=== PATIENT | male | born 1950 | race Caucasian/White ===

== ENCOUNTER → 2023-11-05 10:06 | Outpatient (REF) | payer BC, SELFPAY | LOC: DHCBC MAIN 10:06 | PROVIDERS: ATTENDING PHYSICIAN Internal Medicine Cardiovascular Disease; FAMILY PHYSICIAN Family Medicine | DX: I36.1 Nonrheumatic tricuspid (valve) insufficiency (principal); I34.0 Nonrheumatic mitral (valve) insufficiency; I35.1 Nonrheumatic aortic (valve) insufficiency; E78.00 Pure hypercholesterolemia, unspecified | CPT/HCPCS: 93306 ==

== ENCOUNTER → 2023-11-21 14:28 | Outpatient (REF) | payer BC, SELFPAY | LOC: RAD 14:28 | PROVIDERS: ATTENDING PHYSICIAN Family Medicine | DX: R07.81 Pleurodynia (principal) | CPT/HCPCS: 71101 ==

== ENCOUNTER 2023-12-25 08:08 | Outpatient (RCR) | payer BC, SELFPAY | END 2023-12-25 23:59 | disposition home or self-care (01) | LOC: RPT 08:08 | PROVIDERS: ATTENDING PHYSICIAN Family Medicine | DX: H81.13 Benign paroxysmal vertigo, bilateral (principal); Z73.6 Limitation of activities due to disability | CPT/HCPCS: 97110; 97162 ==

== ENCOUNTER → 2024-05-21 07:53 | Outpatient (REF) | payer BC, SELFPAY | LOC: RAD 07:53 | PROVIDERS: ATTENDING PHYSICIAN Internal Medicine Endocrinology, Diabetes & Metabolism; FAMILY PHYSICIAN Family Medicine | DX: M81.0 Age-related osteoporosis without current pathological fracture (principal) | CPT/HCPCS: 77080; 77081 ==

== ENCOUNTER 2024-11-30 14:46 | Outpatient (RCR) | payer BC, SELFPAY | END 2024-11-30 23:59 | disposition home or self-care (01) | LOC: RPT 14:46 | PROVIDERS: ATTENDING PHYSICIAN Family Medicine | DX: R42 Dizziness and giddiness (principal); Z73.6 Limitation of activities due to disability; R26.89 Other abnormalities of gait and mobility | CPT/HCPCS: 97112; 97162 ==

== ENCOUNTER → 2024-12-01 13:32 | Outpatient (REF) | payer BC, SELFPAY | LOC: RAD 13:32 | PROVIDERS: ATTENDING PHYSICIAN Family Medicine | DX: N10 Acute pyelonephritis (principal); R07.81 Pleurodynia | CPT/HCPCS: 71101; 76770 ==

== ENCOUNTER → 2024-12-14 10:51 | Outpatient (REF) | payer BC, SELFPAY | LOC: RAD 10:51 | PROVIDERS: ATTENDING PHYSICIAN Family Medicine | DX: M54.50 Low back pain, unspecified (principal) | CPT/HCPCS: 72110 ==

== ENCOUNTER → 2024-12-28 09:01 | Outpatient (REF) | payer BC, SELFPAY | LOC: RCS 09:01 | PROVIDERS: ATTENDING PHYSICIAN Internal Medicine Cardiovascular Disease; FAMILY PHYSICIAN Family Medicine | DX: I34.0 Nonrheumatic mitral (valve) insufficiency (principal); I36.1 Nonrheumatic tricuspid (valve) insufficiency; I35.1 Nonrheumatic aortic (valve) insufficiency | CPT/HCPCS: 93306 ==

== ENCOUNTER 2025-01-07 10:48 | Outpatient (RCR) | payer BC, SELFPAY | END 2025-01-07 11:59 | disposition home or self-care (01) | LOC: RPT 10:48 | PROVIDERS: ATTENDING PHYSICIAN Family Medicine | DX: R42 Dizziness and giddiness (principal); Z73.6 Limitation of activities due to disability; R26.89 Other abnormalities of gait and mobility | CPT/HCPCS: 97112 ==

== ENCOUNTER 2025-01-10 11:37 | Outpatient (RCR) | payer BC, SELFPAY | END 2025-01-10 23:59 | disposition home or self-care (01) | LOC: RPT 11:37 | PROVIDERS: ATTENDING PHYSICIAN Family Medicine | DX: M54.50 Low back pain, unspecified (principal); Z73.6 Limitation of activities due to disability | CPT/HCPCS: 97110; 97162 ==

== ENCOUNTER → 2025-01-12 09:40 | Outpatient (REF) | payer BC, SELFPAY | LOC: RAD 09:40 | PROVIDERS: ATTENDING PHYSICIAN Family Medicine | DX: R42 Dizziness and giddiness (principal) | CPT/HCPCS: 71046; 93880 ==

== ENCOUNTER → 2025-04-06 14:29 | Outpatient (REF) | payer OTHER, SELFPAY | LOC: RAD 14:29 | PROVIDERS: ATTENDING PHYSICIAN Family Medicine | DX: M25.571 Pain in right ankle and joints of right foot (principal); I87.2 Venous insufficiency (chronic) (peripheral); M25.561 Pain in right knee; G89.29 Other chronic pain | CPT/HCPCS: 73564; 73610 ==

== ENCOUNTER → 2025-04-13 07:52 | Outpatient (REF) | payer OTHER, SELFPAY | LOC: DHVS 07:52 | PROVIDERS: ATTENDING PHYSICIAN Family Medicine | DX: M25.571 Pain in right ankle and joints of right foot (principal); I87.2 Venous insufficiency (chronic) (peripheral); M25.561 Pain in right knee; G89.29 Other chronic pain | CPT/HCPCS: 93970 ==

== ENCOUNTER 2025-06-01 12:28 | Outpatient (RCR) | payer BC, SELFPAY | END 2025-06-02 06:43 | disposition home or self-care (01) | LOC: RPT 12:28 | PROVIDERS: ATTENDING PHYSICIAN Physician Assistant; FAMILY PHYSICIAN Family Medicine | DX: M17.11 Unilateral primary osteoarthritis, right knee (principal); Z73.6 Limitation of activities due to disability; M25.561 Pain in right knee; R26.89 Other abnormalities of gait and mobility; M62.81 Muscle weakness (generalized) | CPT/HCPCS: 97110; 97162; 97530; 97535 ==

== ENCOUNTER 2025-08-01 18:41 | Emergency (ER) | payer OTHER, SELFPAY ==
[2025-08-01 18:43] VITALS: BP 163/81
--- NOTE | 2025-08-01 22:20 | ED.GENMED ---
History of Present Illness
General
Chief Complaint: Head Injury
Time Seen by Provider: 08/01/25 21:28
History of Present Illness
History of Present Illness:
74-year-old male presents to the emergency department after a mechanical fall, fell forward and struck his face on the ground. Current complaining of right knee pain only, denies headache, neck pain, or extremity paresthesias. Does not take
anticoagulants or antiplatelets
Past History
Past History
ED Past Medical History: Hypercholesterolemia, Other (Glaucoma), Other (Hypogonadism) and Other (Chronic UTI, kidney stones.)
ED Past Surgical History: Appendectomy and Orthopedic (Fracture left tibia repair 2005 Dr. Plata)
Social History
Tobacco: Non-smoker
Alcohol: None
Personal:
Living: with family
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
Family History
Family History: Negative Early CAD
Review of Systems
Review of Systems
Allergies reviewed?: Yes
All Other Systems: ROS reviewed and negative except as documented in HPI and ROS
Phy Exam
Physical Exam
Physical Exam:
GEN: Well appearing, NAD, WDWN
HEENT: Minor laceration to the bridge of the nose as well as abrasions to the nasal tip, no midline cervical spine tenderness oral mucosa moist, no scleral icterus
Cardiac: Regular rate
Lung: No respiratory distress, no tachypnea
MSK: Mild ecchymosis to the anterior knee, range of motion is normal, no crepitus
Skin: Good color, no pallor or jaundice, no rashes
Neuro: AO x3, moves all extremities freely
Psych: Calm, cooperative
Course
Orders/Labs/Results
Orders:
Orders
08/01/25 18:47
Knee, Right 4 or More Views [CR Knee- Right 4 Or More View*] Urgent
Comment:
Reason For Exam: injury
08/01/25 18:[address] [CT Head W/o Iv Contrast] Urgent
Comment:
Reason For Exam: head injury
Vital Signs
Initial and Last Documented VS:
Initial Vital Signs
Temp Pulse Resp BP Pulse Ox
98.4 F 77 20 163/81 98
08/01/25 18:43 08/01/25 18:43 08/01/25 18:43 08/01/25 18:43 08/01/25 18:43
Last Documented Vital Signs
Temp Pulse Resp BP Pulse Ox
98.4 F 71 18 166/81 98
08/01/25 18:43 08/01/25 22:23 08/01/25 22:23 08/01/25 22:23 08/01/25 22:21
MDM/Problems Addressed
MDM/Problems Addressed:
Imaging unremarkable, neurologically intact, no signs of cervical spine injury clinically
*Pulse Oximetry
SaO2: 98
Oxygen Mode of Delivery: Room air
Patient hypoxic: no
*Critical Care Note
Total Time (30-74mins, 75-104mins- exclusive of procedures): Not Applicable
ED Attending Note
-
Portions of this chart may have been created with voice recognition software.� Occasional wrong word or��sound alike� substitutions may have occurred due to the inherent limitations of voice recognition software.
Discharge Plan
Departure
Patient Disposition: Home (Routine Discharge)
Date of Disposition: 08/01/25
Time of Disposition: 22:21
Patient with high blood pressure during this ER visit?: No
Discharge Problem:
Closed head injury, Abrasion of nose, Contusion of knee, right
Instructions: Minor Head Injury (DC)
Prescriptions:
No Action
latanoprost 1 DROP drops
1 drp OPHTHALMIC HS
nitrofurantoin monohyd/m-cryst 100 MG capsule
100 mg PO BID
omega 8-xfy-ylw-fish oil 1 EACH capsule,delayed release(DR/EC)
1 ea PO DAILY
Calcium
PO DAILY
valacyclovir [Valtrex] 1,000 MG tablet
1,000 mg PO TID Qty: 21 0RF
oxycodone-acetaminophen 5 MG/325 MG tablet
1 tab PO Q4HPRN PRN (Reason: pain) Qty: 20 0RF
lidocaine 1 PATCH adhesive patch,medicated
1 - 3 patch topical DAILY Qty: 30 0RF
Rx Instructions:
ON FOR 12 HOURS, OFF FOR 12 HOURS
oxycodone 5 MG tablet
5 mg PO Q4HPRN PRN (Reason: moderate to severe pain) Qty: 15 0RF
oxycodone-acetaminophen 5 MG/325 MG tablet
1 tab PO Q4HPRN PRN (Reason: Pain) Qty: 15 0RF
clindamycin HCl 150 mg capsule
450 mg PO TID 10 Days Qty: 90 0RF
Referrals:
Parth Prince DO [Family Provider, Family Practice]
Interventions
Interventions:
*General Assessment Last Done: 08/01/25 21:29
*Neglect/Abuse Screening Last Done: 08/01/25 18:43
*ED COVID-19 Vaccine History Last Done: 08/01/25 18:43
*ED Influenza Vaccine History Last Done: 08/01/25 18:43
[facility] Risk Assessment Tool Last Done: 08/01/25 21:29
*Risk Screen - Suicide (C-SSRS) Last Done: 08/01/25 18:43
*Nursing Disposition Last Done: 08/01/25 22:26
ED- Neurological Assessment Last Done: 08/01/25 21:31
ED-Skin Assessment Last Done: 08/01/25 21:31
Discharge Date and Time
Discharge Date/Time: 08/01/25 22:26
Print Language: GREENLANDIC
[2025-08-01 22:23] VITALS: BP 166/81
== END 2025-08-01 22:26 | disposition home or self-care (01) ==
LOC: EMR 18:41
PROVIDERS: EMERGENCY PHYSICIAN Emergency Medicine; FAMILY PHYSICIAN Family Medicine
DX: S09.90XA Unspecified injury of head, initial encounter (principal); S00.31XA Abrasion of nose, initial encounter; S80.01XA Contusion of right knee, initial encounter; W18.30XA Fall on same level, unspecified, initial encounter
CPT/HCPCS: 99285; 70450; 73564